=== PATIENT | male | born 2000 | race Caucasian/White ===

== ENCOUNTER 2019-02-22 08:12 | Emergency (ER) | payer OTHER ==
[2019-02-22 08:25] VITALS: O2SAT 97
--- NOTE | 2019-02-22 08:51 | ED.PDOC ---
History of Present Illness - General Chief Complaint: ENT Problem Stated Complaint: sore throat Time Seen by Provider: 02/22/19 08:48 Source: patient Exam Limitations: no limitations - History of Present Illness Initial Comments: patient comes in today for swollen sore throat. Patient started feeling sick 3 weeks ago and eventually was given antibiotics that did not work. He was subsequently diagnosed with tonsillar abscess and hospitalized at [facility] in [place]. Patient had the left side drained but attempts to drainage of the right did not result in any fluid withdrawn. Patient was discharged with clindamycin and was told to follow up as an outpatient with ENT Dr. Tono Houston. Patient comes in today and he was not aware of who had actually seen him or who his ear nose and throat doctor was. Most of the specific history was obtained with calling the admitting hospital and speaking with Dr. Ramirez his internal medicine doctor for the admission. He has not followed up and has been taking his clindamycin. He states it is not acutely worse it has not improved and he is worried that he still has no real voice and cannot really eat solid foods. He has no shortness of breath and he can swallow his own saliva and again there was no acute changes today. No fever or chills. Patient denies any cough or cold symptoms. Patient is otherwise healthy and has no past medical history. He is allergic to penicillin. Timing/Duration: other - 3 weeks Severity: moderate EENT Location: throat Prearrival Treatment: prescription meds Improving Factors: nothing Worsening Factors: nothing Associated Symptoms: poor fluid intake, sore throat Allergies/Adverse Reactions: Allergies Penicillins Allergy (Verified 02/22/19 08:26) Home Medications: Ambulatory Orders Clindamycin HCl [Cleocin] 450 mg PO Q6H 02/22/19 Review of Systems - Review of Systems Constitutional: States: no symptoms reported. Denies: chills, fever EENTM: States: throat pain, throat swelling. Denies: eye pain, nose congestion Respiratory: States: no symptoms reported. Denies: cough, short of breath Cardiology: States: no symptoms reported. Denies: chest pain, palpitations Gastrointestinal/Abdominal: States: no symptoms reported. Denies: abdominal pain, constipation, diarrhea, nausea, vomiting Skin: States: no symptoms reported Past Medical History (General) - Patient Medical History Hx Stroke: No Hx Congestive Heart Failure: No Hx Diabetes: No Surgical History: no surgical history - Vaccination History Hx Influenza Vaccination: Yes - Social History Hx Tobacco Use: Yes Family Medical History - Family History Father Family History: Unknown Living Status: Unknown Physical Exam - Physical Exam General Appearance: Alert, Comfortable, No apparent distress Eye Exam: bilateral normal Ear Exam: bilateral ear: auricle normal Nasal Exam: normal inspection Throat Exam: pharynx swelling, other - bilateral tonisillar exudate and swelling 2+ with no uvula deviation Neck: non-tender, full range of motion, supple, lymphadenopathy (R), lymphadenopathy (L) Cardiovascular/Respiratory: regular rate, rhythm, no M/R/G, normal peripheral pulses, no JVD, normal breath sounds, no respiratory distress Abdominal Exam: non-tender Neurologic: alert, oriented x 3 Progress - Progress Progress: patient's initial complaint was that he was just not improving despite taking his clindamycin as instructed. Although he did not know who the doctor for treated him he did have a work excuse and a prescription bottle that we were able to make out who was the hospitalist who spoke to him. After calling and speaking to the hospitalist we were able to ascertain that he was supposed to follow up with your nose and throat Dr. Tono Houston. We called Dr. Houston's office and have arranged to have him seen as an outpatient at 4:00 this afternoon at his office in [facility]. Dr. Houston is located at [address] [place] [address] 02/22/19 08:52 Departure - Departure Clinical Impression: Tonsillitis Disposition: Discharge to Home or Self Care Condition: Fair Departure Forms: ED Discharge - Pt. Copy, Patient Portal Self Enrollment Home Medications: Ambulatory Orders Clindamycin HCl [Cleocin] 450 mg PO Q6H 02/22/19 Additional Instructions: return to ER for severe worsening, shortness of breath,. Patient is to follow- up with ear nose and throat Dr. Tono Houston. He should arrive at Dr. Houston's office at 3:[address] Houston's phone number is [phone] and his address is [address] [place] [address]
[2019-02-22 09:04] VITALS: BP 122/72; TEMP 96.7
== END 2019-02-22 09:04 | disposition home or self-care (01) ==
LOC: ER 08:12
DX: J03.90 Acute tonsillitis, unspecified (principal); Z88.0 Allergy status to penicillin